=== PATIENT | female | born 1980 | race Two or more races ===

== ENCOUNTER 2018-10-15 20:09 | Emergency (ER) | payer SELFPAY ==
[~2018-10-15] VITALS: Ht 160 cm; Wt 63.5 kg
[2018-10-15 21:32] LABS: Basophils # (auto) 0.1 uL; Basophils % (auto) 0.8 % (0.0-2.0); Eosinophils # (auto) 0.1 uL; Eosinophils % (auto) 1.6 % (0.0-7.0); Hematocrit 41.2 % (36.0-46.0); Hemoglobin 13.7 g/dL (12.2-16.2); Lymphocytes # (auto) 2.6 uL; Lymphocytes % (auto) 32.5 % (10.0-50.0); Mean Corpuscular Hemoglobin 28.4 pg (28.0-32.0); Mean Corpuscular Hgb Conc. 33.3 g/dL (32.0-36.0); Mean Corpuscular Volume 85.4 fL (80.0-100.0); Monocytes # (auto) 0.5 uL; Monocytes % (auto) 5.7 % (0.0-12.0); Neutrophils # (auto) 4.7 uL; Neutrophils % (auto) 59.4 % (37.0-80.0); Nucleated Red Blood Cells % 0.2 %; Platelet Count (auto) 337 10^3/uL (140-450); Red Blood Cells 4.83 10^6/uL (4.0-5.20); White Blood Cell 7.9 10^3/uL (4.4-10.8)
[2018-10-15 21:46] LABS: Albumin 3.8 g/dL (3.4-5.0); Calcium 8.9 mg/dL (8.5-10.1); Potassium 3.9 mmol/L (3.5-5.1)
[2018-10-15 21:49] LABS: BUN/Creatinine Ratio 8.1; Bilirubin, Total 0.3 mg/dL (0.2-1.0); Total Protein 8.6 g/dL (6.4-8.2)
[2018-10-16 01:20] VITALS: BP 146/85
[2018-10-16] MEDS ORDERED: HYDROcodone-ACET 5/325MG TAB PO ONE (01:30)
[2018-10-16] MEDS ORDERED: BACLOFEN 10 MG TAB PO ONE (01:30)
[2018-10-16] MEDS ORDERED: IBUPROFEN 400 MG TAB PO ONE (01:30)
== END 2018-10-16 02:28 | disposition home or self-care (01) ==
LOC: ER 20:29
DX: S62.501A Fracture of unspecified phalanx of right thumb, initial encounter for closed fracture (principal); M62.838 Other muscle spasm; V49.49XA Driver injured in collision with other motor vehicles in traffic accident, initial encounter; Y93.89 Activity, other specified; Y99.8 Other external cause status; Y92.410 Unspecified street and highway as the place of occurrence of the external cause
CPT/HCPCS: 29125; 36415; 73090; 73110; 80053; 85025